=== PATIENT | male | born 1990 | race African-American/Black ===

== ENCOUNTER 2019-11-01 15:16 | Emergency (ER) | payer OTHER ==
--- NOTE | 2019-11-01 15:26 | PDOC ---
Rapid Medical Evaluation Time Seen by Provider: 11/01/19 15:23 Medical Evaluation: 11/01/19 15:25 I have performed a brief in-person evaluation of this patient The patient presents with a chief complaint of:L dental pain/swelling/bleeding x 2 days after routine dental cleaning Pertinent physical exam findings:stable I have ordered the following:nothing The patient will proceed to the ED for further evaluation Discharge Disposition - Diagnosis Pain, dental - Referrals - Patient Instructions - Post Discharge Activity
[2019-11-01 15:30] VITALS: BP 101/64; PULSE 88; TEMP 97.8; BMI 22.8
--- NOTE | 2019-11-01 15:46 | PDOC ---
History of Present Illness - General Chief Complaint: Pain Stated Complaint: TOOTH INFECTIO Time Seen by Provider: 11/01/19 15:23 - History of Present Illness Initial Comments: 11/01/19 15:44 29-year-old male no comorbidities presents for evaluation of dental pain after a tooth cleaning 2 days ago. No systemic symptoms. Past History - Medical History Allergies/Adverse Reactions: Allergies Allergy/AdvReac Type Severity Reaction Status Date / Time No Known Allergies Allergy Verified 11/01/19 15:30 Home Medications: Ambulatory Orders Amoxicillin - [Amoxicillin 500mg Capsule -] 500 mg PO TID #21 capsule 11/01/19 Ibuprofen [Motrin -] 600 mg PO TID #30 tablet 11/01/19 COPD: No - Psycho-Social/Smoking History Smoking History: Never smoked Review of Systems - Review of Systems Constitutional: No: Fever HEENTM: Yes: Dental Problems *Physical Exam - Vital Signs Last Vital Signs Temp Pulse Resp BP Pulse Ox 97.8 F 88 18 101/64 99 11/01/19 15:23 11/01/19 15:23 11/01/19 15:23 11/01/19 15:23 11/01/19 15:23 - Physical Exam 11/01/19 15:44 GENERAL: The patient is awake, alert, and fully oriented, in no acute distress. HEAD: Normal with no signs of trauma. EYES: sclera anicteric, conjunctiva clear. ENT: Ears normal oropharynx clear uvula midline; Diffuse dental caries and fillings small avulsion of the left upper gingiva NECK: Normal range of motion LUNGS:No respiratory distress EXTREMITIES: Normal range of motion, no edema. No clubbing or cyanosis. No cords, erythema, or tenderness. NEUROLOGICAL: Cranial nerves II through XII grossly intact. PSYCH: Normal mood, normal affect. SKIN: Warm, Dry, normal turgor, no rashes or lesions noted. Medical Decision Making - Medical Decision Making 11/01/19 15:45 Amoxicillin and Motrin follow-up with his dentist I have reviewed the pathophysiology with the patient. They are in agreement with the treatment plan all questions were answered to their satisfaction. Understanding for follow-up without fail was also conveyed to the patient. Again they are in agreement. Discharge - Discharge Information Problems reviewed: Yes Clinical Impression/Diagnosis: Pain, dental Condition: Stable Disposition: HOME - Admission No - Additional Discharge Information Prescriptions: Amoxicillin - [Amoxicillin 500mg Capsule -] 500 mg PO TID #21 capsule Ibuprofen [Motrin -] 600 mg PO TID #30 tablet - Follow up/Referral Referrals: Katarzyna Borrero MD [Primary Care Provider] - - Patient Discharge Instructions Additional Instructions: Please take the antibiotics and Motrin as directed. You may also take Tylenol as directed. Return to the emergency room for worsening symptoms and without fail follow-up with your dentist today as scheduled for further evaluation and treatment options. - Post Discharge Activity
== END 2019-11-01 15:50 | disposition home or self-care (01) ==
LOC: JERFT 15:16
DX: K08.89 Other specified disorders of teeth and supporting structures (principal)
CPT/HCPCS: 99282-25

== ENCOUNTER 2020-11-01 10:05 | Emergency (ER) | payer OTHER ==
[2020-11-01 10:10] VITALS: BP 109/76; PULSE 78; TEMP 98.5; BMI 23.0
[2020-11-01 11:02] LABS: ALBUMIN 3.7 g/dl (3.4-5.0); ALK PHOS 65 U/L (45-117); ANION GAP 4 MMOL/L (8-16); BILIRUBIN,TOTAL 1.2 mg/dl (0.2-1); CALCIUM 8.8 mg/dl (8.5-10); CHLORIDE 103 mmol/L (98-107); CO2 26 mmol/L (21-32); CREATININE 0.8 mg/dl (0.55-1.3); GLUCOSE,RANDOM 99 mg/dl (74-106); SGOT/AST 17 U/L (15-37); SGPT/ALT 19 U/L (13-61); SODIUM 133 mmol/L (136-145); TOT PROT 6.2 g/dl (6.4-8.2)
[2020-11-01 11:14] LABS: HEMATOCRIT 40.9 % (35.4-49); HEMOGLOBIN 13.9 GM/dl (11.7-16.9); MCH 29.9 pg (25.7-33.7); MCHC 33.9 g/dl (32.0-35.9); MEAN CELL VOLUME 88.2 fl (80-96); MEAN PLT VOLUME 8.6 fl (7.5-11.1); PLATELET COUNT 245 10^3/uL (134-434); RBC 4.64 M/mm3 (4.00-5.60); RDW 13.2 % (11.9-15.9); WHITE BLOOD COUNT 9.9 K/mm3 (4.0-10.8)
== END 2020-11-01 12:50 | disposition home or self-care (01) ==
LOC: FER 10:05
DX: R07.9 Chest pain, unspecified (principal)
CPT/HCPCS: 36415; 71046-TC-FY; 80053; 82550; 84484; 85025; 87491; 87591; 99284-25